=== PATIENT | female | born 1960 | race Caucasian/White ===

== ENCOUNTER 2024-05-22 08:04 | Emergency (ER) | payer OTHER ==
[2024-05-22 08:22] VITALS: BP 187/89; PULSE 83; TEMP 97.2; O2SAT 99
--- NOTE | 2024-05-22 08:33 | ERPHSYRPT ---
- History of Present Illness Time Seen by Provider: 05/22/24 08:28 Source: patient Exam Limitations: no limitations Patient Subjective Stated Complaint: Pt fell 2 weeks ago and placed her arms down to catch herself and she injured her right wrist, wrist continues to be swo llen and painful Triage Nursing Assessment: Pt brought self to the ER, hypertensive, rates pain as 8/10, some swelling and pain to the right wrist, pulses normal, skin n/w/d, denies any other injuries Physician History: Pt fell 2 weeks ago and placed her arms down to catch herself and she injured her right wrist, wrist continues to be swollen and painful. Patient is 63-year-old female with significant past medical history of COPD osteoarthritis fell 2 weeks ago and injured her right wrist. Initially she thought she just sprained it so she did not seek any medical attention. But in the last 2 to 3 days her pain has increased as well as swelling has increased and having difficulty moving her right wrist so she came to the emergency room. Occurred: last week Method of Injury: fell Quality: constant Severity of Pain-Max: moderate Severity of Pain-Current: moderate Extremities Pain Location: wrist: right Modifying Factors: Improves With: nothing Associated Symptoms: none Body Map: 1 - swelling Allergies/Adverse Reactions: amoxicillin trihydrate [From Augmentin] Allergy (Verified 05/22/24 08:22) clarithromycin [From Biaxin] Allergy (Verified 05/22/24 08:22) levofloxacin [From Levaquin] Allergy (Verified 05/22/24 08:22) morphine Allergy (Verified 05/22/24 08:22) potassium clavulanate [From Augmentin] Allergy (Verified 05/22/24 08:22) Home Medications: Aspirin EC 325 mg [Ecotrin 325 MG] 325 mg PO DAILY 01/02/16 [History] Bupropion HCl 150 mg Sr [Wellbutrin SR 150 MG] 150 mg PO DAILY 01/02/16 [History] Caffeine 200 mg PO BID 01/02/16 [History] Cinnamon Bark [Cinnamon] 1,000 mg PO BID 01/02/16 [History] Fenofibrate 160 mg PO DAILY 01/02/16 [History] Gabapentin 300 mg PO TID 01/02/16 [History] Glipizide 10 mg [Glucotrol 10 MG] 10 mg PO BID 01/02/16 [History] Guaifenesin/Phenylephrine HCl [Mucus Relief PE Tablet] 2 each PO QID 01/02/16 [History] Levothyroxine Sodium 50 Mcg [Synthroid 50 Mcg] 50 mcg PO DAILY 01/02/16 [ History] Loratadine 10 mg [Claritin 10 mg] 10 mg PO DAILY 01/02/16 [History] Metformin HCl 1000 mg [Glucophage 1000 MG] 1,000 mg PO BID 01/02/16 [History] Metoprolol Tartrate 50 mg [Lopressor 50 MG] 50 mg PO DAILY 01/02/16 [History] Oxycodone HCl/Acetaminophen [Oxycodon-Acetaminophen 7.5-325] 1 each PO Q4-6HPRN PRN 01/02/16 [History] Simvastatin 40 mg [Zocor 40 mg] 80 mg PO DAILY 01/02/16 [History] Soy Isofla/Blk Cohosh/Mag Bark [Estroven 155 mg Capsule] 155 mg PO DAILY 01/02/16 [History] Venlafaxine HCl ER 75 mg [Effexor XR 75 MG] 225 mg PO DAILY 01/02/16 [History] carBAMazepine [Epitol] 200 mg PO QID 01/02/16 [History] diazePAM [Diazepam] 2 mg PO TID 01/02/16 [History] Hx Tetanus, Diphtheria Vaccination/Date Given: No (5-6 years ago) Hx Influenza Vaccination/Date Given: Yes Hx Pneumococcal Vaccination/Date Given: Yes Travel Risk - International Travel Have you traveled outside of the country in past 3 weeks: No - Emerging Infectious Disease Are you exhibiting symptoms associated with any current EIDs: No - Review of Systems Constitutional: No Symptoms Eyes: No Symptoms Ears, Nose, & Throat: No Symptoms Respiratory: No Symptoms Cardiac: No Symptoms Abdominal/Gastrointestinal: No Symptoms Genitourinary Symptoms: No Symptoms Musculoskeletal: Fall, Joint Pain, Joint Swelling (right wrist) Neurological: No Symptoms Psychological: No Symptoms Endocrine: No Symptoms Hematologic/Lymphatic: No Symptoms Immunological/Allergic: No Symptoms - Past Medical History Pertinent Past Medical History: Yes Cardiac History: High Cholesterol, Hypertension Respiratory History: COPD, Sleep Apnea Endocrine Medical History: Diabetes Type II, Hypothyroidism Musculoskeletal History: Fractures, Osteoarthritis Psycho-Social History: Anxiety, Depression, Panic Disorder Female Reproductive Disorders: Abnormal Uterine Bleeding Other Medical History: leaky valve - Past Surgical History Past Surgical History: Yes Female Surgical History: Hysterectomy, Section, Other Other Surgical History: cysts on ovaries - Social History Smoking Status: Current every day smoker Exposure to second hand smoke: Yes Drug Use: none - Social Determinants of Health Will the patient participate in the screening: Yes Do you worry about a steady place to live?: No Do you have any problems with any of the following?: No known problems In the past 12 months,have you had to go without utilities?: No Transportation Issues: No Has anyone in your support network made you feel unsafe?: No Have you or anyone in your house had to go without enough: No - Nursing Vital Signs Nursing Vital Signs: Initial Vital Signs Temperature 97.2 F 05/22/24 08:10 Pulse Rate 83 05/22/24 08:10 Blood Pressure 187/89 05/22/24 08:10 O2 Sat by Pulse Oximetry 99 05/22/24 08:10 Pain Scale Pain Intensity 8 - Physical Exam General Appearance: no apparent distress Eyes, Ears, Nose, Throat Exam: normal ENT inspection Neck Exam: normal inspection Cardiovascular/Respiratory Exam: chest non-tender Abdominal Exam: non-tender Shoulder Exam: normal inspection Elbow/Forearm Exam: normal inspection Wrist Exam: deformity, limited ROM, soft tissue tenderness Hand Exam: normal inspection Neuro/Tendon Exam: normal sensation Mental Status Exam: alert, oriented x 3 Skin Exam: normal color SpO2 Interpretation: normal SpO2: 99 O2 Delivery: Room Air Procedures - Splinting Time of Procedure: 08:37 Location of Splint: Right, Wrist Type of Splint: Orthoglass Short Arm Splint Splint Applied By: ED Nurse Pre-Proc Neuro Vasc Exam: normal Post-Proc Neuro Vasc Exam: neurovascular intact - Course Nursing assessment & vital signs reviewed: Yes - Radiology Exams Wrist X-ray Interpretation: Interpreted by me, Reviewed by me, Non-displaced Fracture (right lower end of radius) Ordered Tests: Active Orders 24 hr Category Date Time Status WRIST (MIN 3 VIEWS) Stat Exams 05/22/24 08:22 Ordered - Progress Progress: unchanged, pain not gone completely Counseled pt/family regarding: diagnosis, rad results Medical Desision Making - Diagnostic Testing Diagnostic test were ordered, analyzed, and reviewed by me: Yes Radiological Interpretation: Interpreted by me, Reviewed by me - Departure Departure Disposition: Home Clinical Impression: Right wrist fracture Qualifiers: Encounter type: initial encounter Fracture type: closed Qualified Code(s): S62.101A - Fracture of unspecified carpal bone, right wrist, initial encounter for closed fracture Condition: Stable Critical Care Time: No Referrals: JANET LUQUE, CORPORATE COORDINATOR [Primary Care Provider] - [facility] [id number] Instructions: Wrist fracture, Colles' Fracture (DC) Additional Instructions: Discharge/Care Plan MARIA C CHÁVEZ was seen on 05/22/24 in the Emergency Room. The patient was counseled regarding Diagnosis,Lab results, Imaging studies, need for follow up and when to return to the Emergency Room. Prescriptions given: Discharge Note I have spoken with the patient and/or caregivers. I have explained the patient's condition, diagnosis and treatment plan based on the information available to me at this time. I have answered the patient's and/or caregiver's questions and addressed any concerns. The patient and/or caregivers have as good understanding of the patient's diagnosis, condition and treatment plan as can be expected at this point. The vital signs have been stable. The patient's condition is stable and appropriate for discharge from the emergency department. The patient will pursue further outpatient evaluation with the primary care physician or other designated or consulting physician as outlined in the discharge instructions. The patient and/or caregivers are agreeable to this plan of care and follow-up instructions have been explained in detail. The patient and/or caregivers have received these instruction. The patient/and or caregivers are aware that any significant change in condition or worsening of symptoms sh ould prompt an immediate return to this or the closest emergency department or call 911. MARIA C CHÁVEZ was seen on 05/22/24 n the Emergency Room. At that time you were treated for an emergent condition, during your visit Laboratory, Radiology and/or other procedures may have been ordered. It is very important that you follow-up with your Primary Care Physician JANET LUQUE within the next 24- 48 hours to review your Emergency Room visit and the final results of testing that was ordered. Some test results such as Urine Cultures, Blood Cultures, and other cultures if ordered will not be finalized for 24-48 hours. If you do not have a Primary Care Provider please call the medical records department at [phone] ext [phone] to obtain a copy of your results or you may sign into our patient portal to obtain these results by visiting us @ [email or web address] and completing the following steps: 1. Click on the Patient Portal link 2. Click the Patient Self Enrollment Link to complete the enrollment form and entering your 3. Once the enrollment form is completed you will receive an email with a temporary ID and password at the email address you provided. 4. Next choose a user name and password. Your user name must be at least 4 characters long and your password must be at least 4 characters long. 5. Choose a security question from the list and provide your answer to the question. If you already have signed into the Health Portal you may access your Health Care Information 08/06 by the following steps: 1. Login to our website @ [email or web address] 2. Enter your original user name and password. FAQS The [facility] Health Portal is an online tool that contains your Lab Results, Radiology Reports, Visit History, Discharge Instructions and Health Summary Lab and Radiology Results will not be available for 72 hours on the portal. The Portal is a secure site, passwords are encryted and URLs are re-written so they cannot be copied and pasted. You and authorized family members are the only ones who can access your Portal. Also there is a timeout feature that protects your information if you leave the Portal page open. If you have technical difficulty please use the Contact Us link on the page this will allow you to submit any questions you have regarding the Portal or you may contact the Medical Record Department at [phone] ext [phone]. Prescriptions: Naproxen 375 mg [Naprosyn 375 mg] 375 mg PO Q8H #30 tablet
[2024-05-22] MEDS ORDERED: TORAdol 30 mg Injection ONE (08:48)
[2024-05-22] MEDS: TORAdol 30 mg Injection IM ONE (08:54)
--- NOTE | 2024-05-22 19:39 | XRAY ---
Indication: Pain and swelling following fall 2 weeks ago. Comparison: None 3 view right wrist demonstrates slightly impacted nondisplaced comminuted fracture distal radius with intra-articular extension and soft tissue swelling. Elsewhere osteopenia, mild 1st metacarpal multangular scaphoid degenerative changes. Query remote trapezoid fracture versus degenerative changes. No other bony, articular, or soft tissue abnormalities.
== END 2024-05-22 09:08 | disposition home or self-care (01) ==
LOC: ED 08:04
DX: S52.571A Other intraarticular fracture of lower end of right radius, initial encounter for closed fracture (principal); W19.XXXA Unspecified fall, initial encounter; E78.5 Hyperlipidemia, unspecified; I10 Essential (primary) hypertension; E11.9 Type 2 diabetes mellitus without complications; Z79.84 Long term (current) use of oral hypoglycemic drugs; Z79.899 Other long term (current) drug therapy; Z72.0 Tobacco use
CPT/HCPCS: 29125; 73110; 96372; 99283; J1885

== ENCOUNTER 2024-06-27 16:20 | Emergency (ER) | payer MEDICARE, OTHER ==
[2024-06-27 16:31] VITALS: RESP 18; TEMP 96.2; O2SAT 97
[2024-06-27 17:07] LABS: Absolute Neutrophil Ct (ANC) 3.64 x10^3/uL (1.56-6.13); BASOPHIL % 0.6 % (0.1-1.2); Basophil (Absolute #) 0.04 x10^3/uL (0.01-0.08); Eosinophil % 2.1 % (0.7-5.8); Eosinophil (Absolute #) 0.13 x10^3/uL (0.04-0.36); Hematocrit 37.3 % (34.1-44.9); Hemoglobin 12.4 g/dL (11.2-15.7); IMMATURE GRAN # 0.02 x10^3u/L (0.001-0.031); IMMATURE GRAN % 0.3 % (0.001-0.429); Lymphocyte (Absolute #) 1.96 x10^3/uL (1.18-3.74); Lymphocytes % 31.5 % (19.3-51.7); Mean Cell Volume 101.6 fL (79.4-94.8); Mean Corpuscular Hemoglobin 33.8 pg (25.6-32.2); Mean Corpuscular Hgb Concent. 33.2 g/dL (32.2-35.5); Mean Platelet Volume 10.8 fL (9.4-12.3); Monocyte (Absolute #) 0.44 x10^3/uL (0.24-0.86); Monocytes % 7.1 % (4.7-12.5); Neutrophil % 58.4 % (34.0-71.1); Platelet Count 212 x10^3/uL (182-369); Red Blood Count 3.67 x10^6/uL (3.93-5.22); Red Cell Distribution Width 12.3 % (11.7-14.4); White Blood Count 6.2 x10^3/uL (3.98-10.04)
[2024-06-27 17:19] LABS: ALBUMIN 4.1 g/dL (3.5-5.0); ANION GAP 11.9 MEQ/L (5-15); BILIRUBIN,TOTAL 0.5 mg/dL (0.2-1.3); Calcium 10.2 mg/dL (8.4-10.2); Creatinine 1 1.07 mg/dL (0.52-1.04); EST GLOMERULAR FILTRATION RATE 57.6 ML/MIN; Potassium 4.3 mmol/L (3.5-5.1); Total Protein 6.7 g/dL (6.3-8.2)
[2024-06-27 17:21] LABS: INR 0.97 (0.8-3.0); PROTIME 10.6 SECONDS (9.4-12.5); PTT 23.6 SECONDS (25.1-36.5)
[2024-06-27] MEDS ORDERED: PLAVIX Tablet ONE (17:33)
[2024-06-27] MEDS: PLAVIX Tablet PO ONE (17:35)
--- NOTE | 2024-06-27 18:47 | ERPHSYRPT ---
- History of Present Illness Source: patient, old records Exam Limitations: no limitations Patient Subjective Stated Complaint: Pt states "I have had blurred vision and other issues for 2 years and I went to [facility] radiology in [place] today and had an MRI and they called my dr, Dr. Luis Rodriges and he told me to come to an ER." Triage Nursing Assessment: PT presented alert and oriented X 3, skin wpd. pt ambulates with an upright steady gait, able to speak in clear full sentences. PT resting comfortably on the bed at this time in no apparent distress. Physician History: Patient's been having some blurry vision for about 2 years now. She says it happens after she got new glasses. The her primary doctor did not ordered an MRI for her brain today I believe it was for the blurry vision. On the MRI they saw a tiny lacunar infarct. They said it may be acute. They called her primary doctor. Her her primary doctor told her to come in to the nearest ER. The patient is completely asymptomatic. She has no CVA symptoms whatsoever. She is taking an aspirin a day. She has had trigeminal neuralgia in the past and did have a neurologist. She said her last MRI was about 6 years ago. Patient says she felt fine was having no symptoms. She got a call from her primary doctor and told her to come in to the ER. At this time she is completely asymptomatic. Allergies/Adverse Reactions: amoxicillin trihydrate [From Augmentin] Allergy (Verified 05/22/24 08:22) clarithromycin [From Biaxin] Allergy (Verified 05/22/24 08:22) levofloxacin [From Levaquin] Allergy (Verified 05/22/24 08:22) morphine Allergy (Verified 05/22/24 08:22) potassium clavulanate [From Augmentin] Allergy (Verified 05/22/24 08:22) Home Medications: Aspirin EC 325 mg [Ecotrin 325 MG] 325 mg PO DAILY 01/02/16 [History] Caffeine 200 mg PO BID 01/02/16 [History] Fenofibrate 160 mg PO DAILY 01/02/16 [History] Gabapentin 300 mg PO TID 01/02/16 [History] Levothyroxine Sodium 50 Mcg [Synthroid 50 Mcg] 50 mcg PO DAILY 01/02/16 [History] Loratadine 10 mg [Claritin 10 mg] 10 mg PO DAILY 01/02/16 [History] Metformin HCl 1000 mg [Glucophage 1000 MG] 1,000 mg PO BID 01/02/16 [History] Metoprolol Tartrate 50 mg [Lopressor 50 MG] 50 mg PO DAILY 01/02/16 [History] Venlafaxine HCl ER 75 mg [Effexor XR 75 MG] 225 mg PO DAILY 01/02/16 [History] carBAMazepine [Epitol] 200 mg PO QID 01/02/16 [History] diazePAM [Diazepam] 2 mg PO TID 01/02/16 [History] Tirzepatide [Mounjaro] 7.5 mg SQ WEEKLY 06/27/24 [History] Hx Tetanus, Diphtheria Vaccination/Date Given: No (5-6 years ago) Hx Influenza Vaccination/Date Given: Yes Hx Pneumococcal Vaccination/Date Given: Yes Immunizations Up to Date: No Travel Risk - International Travel Have you traveled outside of the country in past 3 weeks: No - Emerging Infectious Disease Are you exhibiting symptoms associated with any current EIDs: No - Review of Systems Constitutional: No Symptoms Eyes: Other (Blurry vision at times) Ears, Nose, & Throat: No Symptoms Respiratory: No Symptoms Cardiac: No Symptoms Neurological: No Symptoms Psychological: No Symptoms All Other Systems: Reviewed and Negative - Past Medical History Pertinent Past Medical History: Yes Cardiac History: High Cholesterol, Hypertension Respiratory History: COPD, Sleep Apnea Endocrine Medical History: Diabetes Type II, Hypothyroidism Musculoskeletal History: Fractures, Osteoarthritis Psycho-Social History: Anxiety, Depression, Panic Disorder Female Reproductive Disorders: Abnormal Uterine Bleeding Other Medical History: leaky valve - Past Surgical History Past Surgical History: Yes Female Surgical History: Hysterectomy, Section, Other Other Surgical History: cysts on ovaries - Social History Smoking Status: Current every day smoker How long have you smoked: years Exposure to second hand smoke: Yes Drug Use: none - Social Determinants of Health Will the patient participate in the screening: Yes Do you worry about a steady place to live?: No Do you have any problems with any of the following?: No known problems In the past 12 months,have you had to go without utilities?: No Transportation Issues: No Has anyone in your support network made you feel unsafe?: No Have you or anyone in your house had to go without enough: No - Nursing Vital Signs Nursing Vital Signs: Initial Vital Signs Temperature 96.2 F 06/27/24 16:26 Pulse Rate 81 06/27/24 16:26 Respiratory Rate 18 06/27/24 16:26 Blood Pressure 149/80 06/27/24 16:26 O2 Sat by Pulse Oximetry 97 06/27/24 16:26 Pain Scale Pain Intensity 0 - Physical Exam General Appearance: no apparent distress Eye Exam: PERRL/EOMI Ears, Nose, Throat Exam: normal ENT inspection Neck Exam: normal inspection, other (No bruits detected) Respiratory Exam: normal breath sounds, lungs clear Cardiovascular Exam: regular rate/rhythm, normal heart sounds Neurologic Exam: alert, oriented x 3, cooperative, collision repairer II-XII nml as tested, normal mood/affect, nml cerebellar function, nml station & gait, sensation nml, No motor deficits, No sensory deficit Skin Exam: normal color, warm SpO2: 97 - Course Nursing assessment & vital signs reviewed: Yes EKG Interpreted by Me: RATE, NORMAL QRS, NORMAL ST-T Ordered Tests: Active Orders 24 hr Category Date Time Status EKG-ER Only STAT Care 06/27/24 16:52 Active NPO (ED) STAT Care 06/27/24 16:53 Active CBC W DIFF Stat Lab 06/27/24 17:00 Completed CMP Stat Lab 06/27/24 17:00 Completed POCT GLUCOSE Stat Lab 06/27/24 16:39 Completed PROTIME WITH INR Stat Lab 06/27/24 16:53 Completed PTT Stat Lab 06/27/24 16:53 Completed TROPONIN Q4H Lab 06/27/24 17:00 Completed TROPONIN Q4H Lab 06/27/24 21:00 Ordered Medication Summary Discontinued Medications Generic Name Dose Route Start Last Admin Trade Name Freq PRN Reason Stop Dose Admin Clopidogrel Bisulfate 150 mg 06/27/24 16:57 06/27/24 17:35 Clopidogrel Bisulfate 75 Mg Tablet PO 06/27/24 16:58 150 mg STAT ONE Administration Clopidogrel Bisulfate Confirm 06/27/24 17:33 Clopidogrel Bisulfate 75 Mg Tablet Administered 06/27/24 17:34 Dose 150 mg .ROUTE .STK-MED ONE Laboratory Results - last 24 hr 06/27/24 06/27/24 06/27/24 16:39 16:53 17:00 WBC 6.2 RBC 3.67 L Hgb 12.4 Hct 37.3 MCV 101.6 H MCH 33.8 H MCHC 33.2 RDW 12.3 Plt Count 212 MPV 10.8 Gran % 58.4 Immature Gran % (Auto) 0.3 Nucleat RBC Rel Count 0.0 Eos # (Auto) 0.13 Immature Gran # (Auto) 0.02 Absolute Lymphs (auto) 1.96 Absolute Monos (auto) 0.44 Absolute Nucleated RBC 0.00 Lymphocytes % 31.5 Monocytes % 7.1 Eosinophils % 2.1 Basophils % 0.6 Absolute Granulocytes 3.64 Basophils # 0.04 PT 10.6 INR 0.97 APTT 23.6 L Sodium Potassium Chloride Carbon Dioxide Anion Gap BUN Creatinine Estimated GFR Glucose POC Glucometer 126 H Calcium Total Bilirubin AST ALT Alkaline Phosphatase Troponin I Serum Total Protein Albumin 06/27/24 06/27/24 17:00 17:00 WBC RBC Hgb Hct MCV MCH MCHC RDW Plt Count MPV Gran % Immature Gran % (Auto) Nucleat RBC Rel Count Eos # (Auto) Immature Gran # (Auto) Absolute Lymphs (auto) Absolute Monos (auto) Absolute Nucleated RBC Lymphocytes % Monocytes % Eosinophils % Basophils % Absolute Granulocytes Basophils # PT INR APTT Sodium 138 Potassium 4.3 Chloride 109 H Carbon Dioxide 22 Anion Gap 11.9 BUN 39 H Creatinine 1.07 H Estimated GFR 57.6 Glucose 125 H POC Glucometer Calcium 10.2 Total Bilirubin 0.50 AST 51 H ALT 34 Alkaline Phosphatase 48 Troponin I < 0.012 Serum Total Protein 6.7 Albumin 4.1 Lab/Rad Data: Laboratory Result Diagrams 06/27/24 17:00 06/27/24 17:00 Laboratory Results 06/27/24 06/27/24 06/27/24 Range/Units 17:00 17:00 17:00 WBC 6.2 (3.98-10.04) x10^3/uL RBC 3.67 L (3.93-5.22) x10^6/uL Hgb 12.4 (11.2-15.7) g/dL Hct 37.3 (34.1-44.9) % MCV 101.6 H (79.4-94.8) fL MCH 33.8 H (25.6-32.2) pg MCHC 33.2 (32.2-35.5) g/dL RDW 12.3 (11.7-14.4) % Plt Count 212 (182-369) x10^3/uL MPV 10.8 (9.4-12.3) fL Gran % 58.4 (34.0-71.1) % Immature Gran % (Auto) 0.3 (0.001-0.429) % Nucleat RBC Rel Count 0.0 (0.00-0.2) % Eos # (Auto) 0.13 (0.04-0.36) x10^3/uL Immature Gran # (Auto) 0.02 (0.001-0.031) x10^3u/L Absolute Lymphs (auto) 1.96 (1.18-3.74) x10^3/uL Absolute Monos (auto) 0.44 (0.24-0.86) x10^3/uL Absolute Nucleated RBC 0.00 (0.00-0.012) x10^3u/L Lymphocytes % 31.5 (19.3-51.7) % Monocytes % 7.1 (4.7-12.5) % Eosinophils % 2.1 (0.7-5.8) % Basophils % 0.6 (0.1-1.2) % Absolute Granulocytes 3.64 (1.56-6.13) x10^3/uL Basophils # 0.04 (0.01-0.08) x10^3/uL PT (9.4-12.5) SECONDS INR (0.8-3.0) APTT (25.1-36.5) SECONDS Sodium 138 (135-145) mmol/L Potassium 4.3 (3.5-5.1) mmol/L Chloride 109 H (98-107) mmol/L Carbon Dioxide 22 (22-30) mmol/L Anion Gap 11.9 (5-15) MEQ/L BUN 39 H (7-17) mg/dL Creatinine 1.07 H (0.52-1.04) mg/dL Estimated GFR 57.6 ML/MIN Glucose 125 H (74-106) mg/dL POC Glucometer (74 to 106) mg/dL Calcium 10.2 (8.4-10.2) mg/dL Total Bilirubin 0.50 (0.2-1.3) mg/dL AST 51 H (14-36) U/L ALT 34 (0-35) U/L Alkaline Phosphatase 48 (38-126) U/L Troponin I < 0.012 (0.000-0.033) ng/mL Serum Total Protein 6.7 (6.3-8.2) g/dL Albumin 4.1 (3.5-5.0) g/dL 06/27/24 06/27/24 Range/Units 16:53 16:39 WBC (3.98-10.04) x10^3/uL RBC (3.93-5.22) x10^6/uL Hgb (11.2-15.7) g/dL Hct (34.1-44.9) % MCV (79.4-94.8) fL MCH (25.6-32.2) pg MCHC (32.2-35.5) g/dL RDW (11.7-14.4) % Plt Count (182-369) x10^3/uL MPV (9.4-12.3) fL Gran % (34.0-71.1) % Immature Gran % (Auto) (0.001-0.429) % Nucleat RBC Rel Count (0.00-0.2) % Eos # (Auto) (0.04-0.36) x10^3/uL Immature Gran # (Auto) (0.001-0.031) x10^3u/L Absolute Lymphs (auto) (1.18-3.74) x10^3/uL Absolute Monos (auto) (0.24-0.86) x10^3/uL Absolute Nucleated RBC (0.00-0.012) x10^3u/L Lymphocytes % (19.3-51.7) % Monocytes % (4.7-12.5) % Eosinophils % (0.7-5.8) % Basophils % (0.1-1.2) % Absolute Granulocytes (1.56-6.13) x10^3/uL Basophils # (0.01-0.08) x10^3/uL PT 10.6 (9.4-12.5) SECONDS INR 0.97 (0.8-3.0) APTT 23.6 L (25.1-36.5) SECONDS Sodium (135-145) mmol/L Potassium (3.5-5.1) mmol/L Chloride (98-107) mmol/L Carbon Dioxide (22-30) mmol/L Anion Gap (5-15) MEQ/L BUN (7-17) mg/dL Creatinine (0.52-1.04) mg/dL Estimated GFR ML/MIN Glucose (74-106) mg/dL POC Glucometer 126 H (74 to 106) mg/dL Calcium (8.4-10.2) mg/dL Total Bilirubin (0.2-1.3) mg/dL AST (14-36) U/L ALT (0-35) U/L Alkaline Phosphatase (38-126) U/L Troponin I (0.000-0.033) ng/mL Serum Total Protein (6.3-8.2) g/dL Albumin (3.5-5.0) g/dL - Progress Progress: unchanged Progress Note: The patient was stable throughout stay. I reviewed her MRI. I went ahead and got some lab workup done on her and EKG. It all looked very good. At this time I think the patient stable for discharge home. I do not think we need to admit her. I think we should do dual platelet therapy on her at least for now. I gave her some Plavix here and when to send her home with some. I think that this can be worked up on an outpatient basis. 06/27/24 18:46 Medical Desision Making - Risk of complications Minimal Risk: Minimal risk of morbidity - Departure Departure Disposition: Home Clinical Impression: Lacunar infarction Condition: Stable Critical Care Time: No Referrals: KATHLEEN RODRIGES [Primary Care Provider] - Follow up/PCP as directed
[2024-06-27 18:59] VITALS: BP 150/86; PULSE 76
== END 2024-06-27 19:05 | disposition home or self-care (01) ==
LOC: ED 16:20
DX: I63.81 Other cerebral infarction due to occlusion or stenosis of small artery (principal); H53.8 Other visual disturbances; I10 Essential (primary) hypertension; E78.5 Hyperlipidemia, unspecified; E11.9 Type 2 diabetes mellitus without complications; Z79.85 Long-term (current) use of injectable non-insulin antidiabetic drugs; Z79.84 Long term (current) use of oral hypoglycemic drugs; Z79.899 Other long term (current) drug therapy; Z72.0 Tobacco use
CPT/HCPCS: 36415; 80053; 82947; 84484; 85025; 85610; 85730; 93005; 99283; A9270-GY